=== PATIENT | female | born 1980 | race Caucasian/White ===

== ENCOUNTER 2021-02-27 17:22 | Emergency (ER) | payer MEDICAID ==
[~2021-02-27] VITALS: Ht 157.5 cm; Wt 109.3 kg
[2021-02-27 18:31] LABS: Basophils # (auto) 0.1 10 ^3/uL (0-0.2); Basophils % (auto) 0.6 % (0.0-2.0); Eosinophils # (auto) 0.1 10 ^3/uL (0-0.8); Eosinophils % (auto) 0.5 % (0.0-7.0); Hematocrit 40.7 % (36.0-46.0); Hemoglobin 13.6 g/dL (12.2-16.2); Lymphocytes # (auto) 2.4 10 ^3/uL (0.4-5.4); Lymphocytes % (auto) 23.9 % (10.0-50.0); Mean Corpuscular Hemoglobin 28.9 pg (28.0-32.0); Mean Corpuscular Hgb Conc. 33.5 g/dL (32.0-36.0); Mean Corpuscular Volume 86.4 fL (80.0-100.0); Monocytes # (auto) 0.7 10 ^3/uL (0-1.3); Monocytes % (auto) 7.4 % (0.0-12.0); Neutrophils # (auto) 6.8 10 ^3/uL (1.6-8.6); Neutrophils % (auto) 67.6 % (37.0-80.0); Nucleated Red Blood Cells % 0.1 %; Red Blood Cells 4.71 10^6/uL (4.0-5.20); Red Cell Distribution Width 13.8 % (11.8-14.3); White Blood Cell 10.1 10^3/uL (4.4-10.8)
[2021-02-27 18:37] LABS: Albumin 3.9 g/dL (3.4-5.0); BUN/Creatinine Ratio 11.7; Calcium 9.9 mg/dL (8.5-10.1); Magnesium 1.9 mg/dL (1.6-2.6); Potassium 4.2 mmol/L (3.5-5.1)
[2021-02-27 18:41] LABS: Bilirubin, Total 0.4 mg/dL (0.2-1.0); Total Protein 7.8 g/dL (6.4-8.2)
[2021-02-27] MEDS ORDERED: SODIUM CHLORIDE 0.9% 1,000 ML IV ONE (19:30)
[2021-02-27 21:53] VITALS: BP 121/72
== END 2021-02-27 19:02 | disposition home or self-care (01) ==
LOC: ER 17:23
DX: E11.65 Type 2 diabetes mellitus with hyperglycemia (principal); E78.5 Hyperlipidemia, unspecified; I10 Essential (primary) hypertension; Z91.013 Allergy to seafood
CPT/HCPCS: 36415; 80053; 82010; 82962; 83735; 85025; 96360; 99283; J7030

== ENCOUNTER 2021-04-11 17:54 | Emergency (ER) | payer MEDICAID ==
[~2021-04-11] VITALS: Ht 157.5 cm; Wt 108.9 kg
[2021-04-12 00:45] VITALS: BP 146/55
== END 2021-04-12 01:05 | disposition home or self-care (01) ==
LOC: ER 17:54
DX: J40 Bronchitis, not specified as acute or chronic (principal); J02.9 Acute pharyngitis, unspecified; R51.9 Headache, unspecified; R53.83 Other fatigue; E11.9 Type 2 diabetes mellitus without complications; E78.5 Hyperlipidemia, unspecified; I10 Essential (primary) hypertension

== ENCOUNTER 2021-05-23 15:06 | Emergency (ER) | payer MEDICAID, OTHER ==
[~2021-05-23] VITALS: Ht 157.5 cm; Wt 96.2 kg
[2021-05-23 16:52] VITALS: BP 128/58
[2021-05-25] MEDS ORDERED: METF-370 PO ×2 (01:44→16:17)
== END 2021-05-23 18:20 | disposition home or self-care (01) ==
LOC: ER 15:06
DX: S63.502A Unspecified sprain of left wrist, initial encounter (principal); E11.9 Type 2 diabetes mellitus without complications; E78.5 Hyperlipidemia, unspecified; I10 Essential (primary) hypertension; Z91.013 Allergy to seafood; W23.0XXA Caught, crushed, jammed, or pinched between moving objects, initial encounter; Y93.89 Activity, other specified; Y92.89 Other specified places as the place of occurrence of the external cause; Y99.8 Other external cause status
CPT/HCPCS: 29125; 73110; 73130

== ENCOUNTER 2021-05-24 15:13 | Inpatient (IN) | payer MEDICAID, OTHER ==
[~2021-05-24] VITALS: Ht 157.5 cm; Wt 100.9 kg
[2021-05-24 16:21] LABS: Basophils # (auto) 0.1 10 ^3/uL (0-0.2); Basophils % (auto) 1.8 % (0.0-2.0); Eosinophils # (auto) 0 10 ^3/uL (0-0.8); Eosinophils % (auto) 0.5 % (0.0-7.0); Hematocrit 41.4 % (36.0-46.0); Hemoglobin 13.9 g/dL (12.2-16.2); Lymphocytes # (auto) 1.9 10 ^3/uL (0.4-5.4); Lymphocytes % (auto) 30.9 % (10.0-50.0); Mean Corpuscular Hemoglobin 28.7 pg (28.0-32.0); Mean Corpuscular Hgb Conc. 33.5 g/dL (32.0-36.0); Mean Corpuscular Volume 85.8 fL (80.0-100.0); Monocytes # (auto) 0.5 10 ^3/uL (0-1.3); Monocytes % (auto) 7.2 % (0.0-12.0); Neutrophils # (auto) 3.8 10 ^3/uL (1.6-8.6); Neutrophils % (auto) 59.6 % (37.0-80.0); Nucleated Red Blood Cells % 0.2 %; Red Blood Cells 4.82 10^6/uL (4.0-5.20); Red Cell Distribution Width 15.4 % (11.8-14.3); White Blood Cell 6.3 10^3/uL (4.4-10.8)
[2021-05-24 16:33] LABS: Albumin 4.1 g/dL (3.4-5.0); Calcium 10.2 mg/dL (8.5-10.1); Potassium 3.4 mmol/L (3.5-5.1)
[2021-05-24 16:36] LABS: BUN/Creatinine Ratio 16.3; Bilirubin, Total 0.5 mg/dL (0.2-1.0); Total Protein 7.4 g/dL (6.4-8.2)
[2021-05-24] MEDS ORDERED: InsuLIN REG 1unit/0.01ml Soln (100units/ml) SC ONE (17:00)
[2021-05-24 17:39] LABS: Urine Bacteria NONE SEEN /hpf (None Seen); Urine Blood 3+ /uL (Negative); Urine Mucus FEW (None Seen); Urine Specific Gravity 1.034 (1.001-1.035); Urine WBC 26 /hpf (0 - 5)
[2021-05-24] MEDS ORDERED: SODIUM CHLORIDE 0.9% 1,000 ML IV ONE ×2 (17:45)
[2021-05-24] MEDS ORDERED: FUROSEMIDE 20 MG/2 ML VIAL IV ONE (17:45)
[2021-05-24] MEDS ORDERED: KETOROLAC TROMETH 30 MG/ML 1ML VIAL IV ONE (17:45)
[2021-05-24] MEDS ORDERED: TAMSULOSIN HYDROCHLORIDE 0.4 MG CAP PO ONE (17:45)
[2021-05-24] MEDS ORDERED: POTASSIUM EFFERVESENT TAB 25 MEQ PO ONE (17:45)
[2021-05-24] MEDS ORDERED: PROMETHAZINE HCL 25 MG/ML 1ML IV PRN (18:15)
[2021-05-24] MEDS ORDERED: NITROGLYCERIN 0.4 MG SL TAB SL PRN (18:15)
[2021-05-24] MEDS ORDERED: MORPHINE SULFATE INJECTION 2 MG/ML SYRG IV PRN (18:15)
[2021-05-24] MEDS ORDERED: KETOROLAC TROMETH 30 MG/ML 1ML VIAL IV PRN (18:15)
[2021-05-24] MEDS ORDERED: ACETAMINOPHEN 325 MG TAB PO PRN (18:15)
[2021-05-24 20:06] LABS: Cholesterol 188 mg/dL (< 200); HDL Cholesterol 56 mg/dL (40-59); LDL Cholesterol 102 mg/dL (< 100); Triglycerides 170 mg/dL (< 150)
[2021-05-24 20:40] LABS: Amphetamine Screen, Urine NEGATIVE (NEGATIVE); Barbiturate Scree,Urine NEGATIVE (NEGATIVE); Benzodiazephine Screen, Urine NEGATIVE (NEGATIVE); Cocaine Screen, Urine NEGATIVE (NEGATIVE); Opiate Scree,Urine NEGATIVE (NEGATIVE); Phencyclidine Screen, Urine NEGATIVE (NEGATIVE)
[2021-05-24 20:46] LABS: Alcohol, Urine < 3.0 mg/dL (0-10)
[2021-05-24 20:47] LABS: Cannabinoid Screen, Urine POSITIVE (NEGATIVE)
[2021-05-25] MEDS: SODIUM CHLORIDE 0.9% 1,000 ML IV SCH ×3 (00:46→18:14)
[2021-05-25 01:30] VITALS: BP 132/70
[2021-05-25] MEDS ORDERED: HYDR25TA4 PO ×2 (01:44→16:17)
[2021-05-25] MEDS ORDERED: LISI-716 PO ×2 (01:44→16:17)
[2021-05-25] MEDS ORDERED: METF-370 PO ×3 (01:44→16:17)
[2021-05-25 05:38] VITALS: BP 96/62
[2021-05-25 08:00] VITALS: BP 117/83
[2021-05-25] MEDS: HYDROcodone-ACET 5/325MG TAB PO PRN ×2 (13:09→21:03)
[2021-05-25] MEDS ORDERED: IBUP600T27 PO (16:17)
[2021-05-25] MEDS ORDERED: OMEP-434 PO (16:17)
[2021-05-25] MEDS ORDERED: CIPR-173 PO (16:17)
[2021-05-25 18:00] VITALS: BP 116/71
[2021-05-25] MEDS ORDERED: TAMSULOSIN HYDROCHLORIDE 0.4 MG CAP PO SCH (18:00)
[2021-05-25] MEDS: InsuLIN REG 1unit/0.01ml Soln (100units/ml) SC SCH (18:16)
[2021-05-25] MEDS: metFORMIN HYDROCHLORIDE 500 MG TAB PO SCH (18:16)
[2021-05-25 20:00] VITALS: BP 107/63
[2021-05-25 21:15] VITALS: BP 107/63
[2021-05-26 05:00] VITALS: BP 99/65
[2021-05-26] MEDS: InsuLIN REG 1unit/0.01ml Soln (100units/ml) SC SCH ×2 (06:13→12:42)
[2021-05-26 08:31] VITALS: BP 135/88
[2021-05-26] MEDS: metFORMIN HYDROCHLORIDE 500 MG TAB PO SCH (09:15)
[2021-05-26] MEDS: HYDROcodone-ACET 5/325MG TAB PO PRN (10:11)
[2021-05-26 12:45] VITALS: BP 95/62
== END 2021-05-26 15:32 | disposition home or self-care (01) | DRG 465 ==
LOC: ER 15:13 → OVERFLOW 18:11 → WEST WING 23:29
PROVIDERS: ADMIT Hospitalist; ATTEND Hospitalist
DX: N20.0 Calculus of kidney (principal); E11.65 Type 2 diabetes mellitus with hyperglycemia; R82.81 Pyuria; I10 Essential (primary) hypertension; R53.83 Other fatigue; Z20.822 Contact with and (suspected) exposure to COVID-19; F12.90 Cannabis use, unspecified, uncomplicated; Z79.4 Long term (current) use of insulin; Z59.00 Homelessness unspecified; Z83.3 Family history of diabetes mellitus; Z79.899 Other long term (current) drug therapy; Z91.013 Allergy to seafood
CPT/HCPCS: 36415; 74176; 80053; 80061; 80307; 81001; 82962; 83036; 83690; 84702; 85025; 87426; 96361; 96372; 96374; 96375; G0378; J1815; J1885

== ENCOUNTER 2021-09-11 19:39 | Inpatient (IN) | payer MEDICAID ==
[~2021-09-11] VITALS: Ht 157.5 cm; Wt 112.7 kg
[~2021-09-11 19:39] MED LIST: CIPR-173 PO; HYDR25TA4 PO; IBUP600T27 PO; LISI-716 PO; METF-370 PO; OMEP-434 PO
[2021-09-11 20:41] LABS: Basophils # (auto) 0.1 10 ^3/uL (0-0.2); Basophils % (auto) 0.7 % (0.0-2.0); Eosinophils # (auto) 0.2 10 ^3/uL (0-0.8); Eosinophils % (auto) 2.4 % (0.0-7.0); Hematocrit 34.5 % (36.0-46.0); Hemoglobin 11.6 g/dL (12.2-16.2); Lymphocytes # (auto) 2.3 10 ^3/uL (0.4-5.4); Mean Corpuscular Hgb Conc. 33.6 g/dL (32.0-36.0); Mean Corpuscular Volume 86.5 fL (80.0-100.0); Monocytes # (auto) 0.6 10 ^3/uL (0-1.3); Monocytes % (auto) 6.9 % (0.0-12.0); Neutrophils # (auto) 5.5 10 ^3/uL (1.6-8.6); Nucleated Red Blood Cells % 0.1 %; Red Blood Cells 3.99 10^6/uL (4.0-5.20); Red Cell Distribution Width 14.4 % (11.8-14.3); White Blood Cell 8.7 10^3/uL (4.4-10.8)
[2021-09-11 20:53] LABS: Urine Amorphous Crystal FEW /hpf (None Seen); Urine Bacteria NONE SEEN /hpf (None Seen); Urine Blood 3+ /uL (Negative); Urine Specific Gravity 1.018 (1.001-1.035); Urine WBC 23 /hpf (0 - 5)
[2021-09-11 21:00] LABS: Albumin 3.5 g/dL (3.4-5.0); Calcium 9.6 mg/dL (8.5-10.1); Magnesium 1.7 mg/dL (1.6-2.6); Potassium 4.7 mmol/L (3.5-5.1)
[2021-09-11 21:04] LABS: Bilirubin, Total 0.2 mg/dL (0.2-1.0)
[2021-09-11] MEDS ORDERED: KETOROLAC TROMETH 30 MG/ML 1ML VIAL IV ONE (21:45)
[2021-09-12] MEDS ORDERED: ACETAMINOPHEN 325 MG TAB PO PRN (00:45)
[2021-09-12] MEDS ORDERED: ONDANSETRON HCL 4 MG/2 ML VIAL IV PRN (00:45)
[2021-09-12] MEDS ORDERED: DEXTROSE (50%) 50ML SYRG IV PRN (00:45)
[2021-09-12] MEDS ORDERED: DOCUSATE SOD 100 MG CAP PO PRN (00:45)
[2021-09-12] MEDS ORDERED: cefTRIAXone 1GM/50ML D5W 50 ML IV ONE (00:45)
[2021-09-12] MEDS: SOD CHL 0.45% 1,000 ML IV SCH ×2 (01:09→02:52)
[2021-09-12] MEDS: HYDROcodone-ACET 5/325MG TAB PO PRN ×5 (02:53→21:15)
[2021-09-12] MEDS ORDERED: METF-370 PO (03:44)
[2021-09-12] MEDS ORDERED: SITA50TA PO (04:17)
[2021-09-12] MEDS ORDERED: SERT25TA84 PO (04:18)
[2021-09-12] MEDS ORDERED: RISP0.5T17 PO (04:20)
[2021-09-12 05:00] VITALS: BP 132/57
[2021-09-12] MEDS: SODIUM CHLOR 0.9% PF (SALINE LOCK) 10ML VIAL/SYR IV SCH ×3 (06:16→21:16)
[2021-09-12] MEDS: ACCU-CHEK COMFORT CURVE STRIP VI SCH ×4 (06:16→22:40)
[2021-09-12] MEDS: InsuLIN REG 1unit/0.01ml Soln (100units/ml) SC SCH ×4 (06:52→22:37)
[2021-09-12 09:00] VITALS: BP 124/77
[2021-09-12 13:00] VITALS: BP 92/60
[2021-09-12] MEDS ORDERED: CIPR-173 PO (13:04)
[2021-09-12 13:30] VITALS: BP 105/60
[2021-09-12] MEDS ORDERED: TAMS0.4C36 PO (14:50)
[2021-09-12] MEDS ORDERED: PRA1C PO (14:50)
[2021-09-12 17:00] VITALS: BP 111/73
[2021-09-12 20:00] VITALS: BP 120/67
[2021-09-13 05:09] VITALS: BP 118/58
[2021-09-13] MEDS: SODIUM CHLOR 0.9% PF (SALINE LOCK) 10ML VIAL/SYR IV SCH (05:53)
[2021-09-13] MEDS: ACCU-CHEK COMFORT CURVE STRIP VI SCH (06:34)
[2021-09-13] MEDS: InsuLIN REG 1unit/0.01ml Soln (100units/ml) SC SCH (06:34)
[2021-09-13 08:00] VITALS: BP 94/69
[2021-09-13] MEDS ORDERED: cefTRIAXone 1GM/50ML D5W 50 ML IV SCH (10:00)
[2021-09-13] MEDS: SOD CHL 0.45% 1,000 ML IV SCH (10:00)
[2021-09-13 11:31] VITALS: BP 105/56
[2021-09-13 12:00] VITALS: BP 96/61
== END 2021-09-13 13:21 | disposition home or self-care (01) | DRG 465 ==
LOC: ER 19:39 → WEST WING 09-12 00:43
PROVIDERS: ADMIT Internal Medicine; ATTEND Internal Medicine Pulmonary Disease
DX: N20.0 Calculus of kidney (principal); R16.0 Hepatomegaly, not elsewhere classified; I10 Essential (primary) hypertension; N39.0 Urinary tract infection, site not specified; E11.9 Type 2 diabetes mellitus without complications; K42.9 Umbilical hernia without obstruction or gangrene; Z20.822 Contact with and (suspected) exposure to COVID-19; M47.815 Spondylosis without myelopathy or radiculopathy, thoracolumbar region; Z82.49 Family history of ischemic heart disease and other diseases of the circulatory system; Z83.3 Family history of diabetes mellitus; Z87.442 Personal history of urinary calculi; Z91.013 Allergy to seafood; Z79.84 Long term (current) use of oral hypoglycemic drugs
CPT/HCPCS: 36415; 74176; 80053; 81001; 81025; 82150; 82962; 83690; 83735; 85025; 87086; 96365; 96375; G0378; J0696; J1815; J1885